=== PATIENT | female | born 1965 | race Caucasian/White ===

== ENCOUNTER 2017-06-19 08:04 | Day surgery (SDC) | payer OTHER, BC ==
[2017-06-19] MEDS ORDERED: LACTATED RINGERS 1,000 ML IV ONE (08:43)
[2017-06-19] MEDS ORDERED: MIDAZOLAM 2 MG/2 ML VIAL IVP ONE (09:12)
[2017-06-19] MEDS ORDERED: ONDANSETRON 4 MG/2 ML VIAL IVP ONE (09:12)
[2017-06-19] MEDS ORDERED: fentaNYL 100 MCG/2 ML VIAL IVP ONE (09:12)
[2017-06-19 10:16] VITALS: BP 105/61
== END 2017-06-19 08:05 | disposition home or self-care (01) ==
LOC: SDS 08:04
PROVIDERS: ATTEND Surgery
PROC: 0DBL8ZX Excision of Transverse Colon, Via Natural or Artificial Opening Endoscopic, Diagnostic (ICD-10-PCS; principal; 2017-06-19 09:30)
DX: Z12.11 Encounter for screening for malignant neoplasm of colon (principal); K63.5 Polyp of colon; K57.30 Diverticulosis of large intestine without perforation or abscess without bleeding; I10 Essential (primary) hypertension; K21.9 Gastro-esophageal reflux disease without esophagitis
CPT/HCPCS: 45380; 88305; J7120

== ENCOUNTER 2023-07-08 10:10 | Day surgery (SDC) | payer BC ==
[2023-07-08] MEDS ORDERED: LACTATED RINGERS 1,000 ML IV ONE (10:17)
[2023-07-08] MEDS ORDERED: PROPOFOL 500 MG/50 ML 500 MG/50 ML VIAL ONE (10:34)
--- NOTE | 2023-07-08 11:04 | ANESTHESIA ---
Pre-Anesthesia VS, & Labs - Diagnosis screening - Procedure colonoscopy Vital Signs: Temp Pulse Resp BP Pulse Ox O2 Flow Rate 36.3 C L 115 H 16 161/100 H 97 07/08/23 10:23 07/08/23 10:23 07/08/23 10:23 07/08/23 10:23 07/08/23 10:23 Height: 4 ft 10 in Weight (kg): 67 kg Body Mass Index: 30.9 BMI Classification: Obese - NPO Other (prep as directed finished at 430 am) - Is Patient ?: No Home Medications and Allergies Estrogens, Conjugated [Premarin] 0.625 mg PO DAILY 06/18/17 Felodipine [Felodipine ER] 5 mg PO DAILY 06/18/17 Meloxicam 15 mg PO DAILY 06/18/17 Allergies/Adverse Reactions: Allergies Allergy/AdvReac Type Severity Reaction Status Date / Time No Known Drug Allergies Allergy Verified 07/08/23 10:21 Anes History & Medical History - Anesthetic History Anesthesia Complications: reports: No previous complications - Medical History Cardiovascular: reports: Hypertension Pulmonary: reports: None Gastrointestinal: reports: GERD, Colon polyps Urinary: reports: None Musculoskeletal: reports: Osteoarthritis Endocrine/Autoimmune: reports: None Skin: reports: None Smoking Status: Never smoker Psychosocial: reports: Alcohol (wine nightly) - Surgical History General: reports: Colonoscopy Gynecologic: reports: section, Hysterectomy Exam General: Alert, Oriented x3 Dental: WNL Mouth Opening: Greater than 4 Fingerbreadths Neck Mobility: Normal Mallampati classification: I Thyromental Distance: greater than 6 cm Respiratory: Lungs clear Cardiovascular: Regular rate, Normal S1, Normal S2 Plan Anesthesia Type: Total IV Consent for Procedure(s) Verified and Reviewed: Yes Code Status: Do Not Attempt Resuscitation ASA classification: 2-Mild systemic disease Is this case an emergency?: No
[2023-07-08] MEDS ORDERED: LACTATED RINGERS 500 ML IV ONE (11:47)
[2023-07-08] MEDS ORDERED: PROPOFOL 200 MG/20 ML VIAL IVP ONE ×2 (11:49)
--- NOTE | 2023-07-08 12:04 | ANESTHESIA POST OP EVALUATION ---
Anesthesia Post Eval - Post Anesthesia Eval Vitals: Last Vital Signs Temp 36.7 C 07/08/23 11:49 Pulse 91 07/08/23 12:00 Resp 14 07/08/23 12:00 BP 111/79 07/08/23 12:00 Pulse Ox 98 07/08/23 12:00 O2 Flow Rate CV Function Including HR & BP: Stable Pain Control: Satisfactory Nausea & Vomiting: Negative Mental Status: Baseline Respiratory Status: Airway Patent Hydration Status: Satisfactory Anesthesia Complications: None
[2023-07-08 12:09] VITALS: BP 111/79; O2SAT 98
== END 2023-07-08 10:11 | disposition home or self-care (01) ==
LOC: SDS 10:10
PROVIDERS: ATTEND Surgery
DX: Z12.11 Encounter for screening for malignant neoplasm of colon (principal); K57.30 Diverticulosis of large intestine without perforation or abscess without bleeding; Z80.0 Family history of malignant neoplasm of digestive organs; Z86.010 Personal history of colon polyps; E66.9 Obesity, unspecified; Z68.30 Body mass index [BMI] 30.0-30.9, adult
CPT/HCPCS: 45378; J7120